=== PATIENT | male | born 1935 | race Hispanic/Latino ===

== ENCOUNTER 2019-09-07 03:21 | Emergency (ER) | payer MEDICARE ==
[2019-09-07 03:52] LABS: #Basophils 0.1 thou/uL (0.0-0.2); #Eosinphils 0.1 thou/uL (0.0-0.7); #Monocytes 0.6 thou/uL (0.11-0.59); #Neutrophils 3.7 thou/uL (1.40-6.50); %Basophils 1.4 % (0.0-1.0); %Eosinophils 1.3 % (0.0-10.0); %Lymphocytes 18.1 % (21.0-51.0); %Monocytes 10.3 % (0.0-10.0); Hemoglobin 13.2 g/dL (14.0-18.0); Mean Corpuscular HGB CONC 33.7 g/dL (32.0-36.0); Mean Corpuscular Hemoglobin 30.7 pg (27.0-31.0); Mean Platelet Volume 6.7 fL (7.4-10.4); Platelet Count 196 thou/uL (130-400); Red Blood Cell (RBC) Count 4.32 mill/uL (4.70-6.10); White Blood Cell (WBC) Count 5.4 thou/uL (4.8-10.8)
[2019-09-07 04:05] LABS: INR-International Normal Ratio 1.1; PTT 40.3 SEC (22.9-36.1); Prothrombin Time 14.2 SEC (12.0-14.7)
[2019-09-07 04:14] LABS: ALT (SGPT) 11 U/L (8-55); AST (SGOT) 17 U/L (5-34); Alkaline Phosphatase 90 U/L (40-110); Anion Gap 15 mmol/L (10-20); BUN (Urea Nitrogen) 14 mg/dL (8.4-25.7); Bilirubin, Total 0.7 mg/dL (0.2-1.2); CK (CPK) 43 U/L (30-200); Calc. Creatinine Clearance 0 mL/min (70-130); Calcium 9.1 mg/dL (7.8-10.44); Carbon Dioxide 25 mmol/L (23-31); Chloride 104 mmol/L (98-107); Estimated GFR-MDRD 61; Globulin 3.1 g/dL (2.4-3.5); Potassium 3.5 mmol/L (3.5-5.1); Protein, Total 7.1 g/dL (5.8-8.1); Sodium 140 mmol/L (136-145)
[2019-09-07 04:31] LABS: Glucose 46 mg/dL (83-110)
--- NOTE | 2019-09-07 07:31 | CT ---
PRELIMINARY REPORT/[facility]/EMERGENCY AFTER HOURS PROCEDURE: EXAM: CT Head Without Intravenous Contrast. CLINICAL HISTORY: AMS/SWEATING. BLOOD GLUCOSE 46. TECHNIQUE: Axial computed tomography images of the head/brain without intravenous contrast. COMPARISON: None provided. FINDINGS: BRAIN: There is cerebral atrophy. There is no intracranial hemorrhage. Periventricular hypodensities are present secondary to small vessel ischemic disease. VENTRICLES: No hydrocephalus. ORBITS: The orbits are unremarkable. SINUSES AND MASTOIDS: The paranasal sinuses and mastoid air cells are clear. SOFT TISSUES: No significant facial or scalp soft tissue swelling evident. No radiopaque foreign body is seen. BONES: No acute skull fracture. IMPRESSION: No acute intracranial abnormality. ELECTRONICALLY SIGNED BY: Rosa Elena Camacho MD Sep 07, 2019 4:26:12 AM CDT This report is intended for review by the ordering physician only, in accordance of law. If you recei ve this report in error, please call [facility] at [phone]. FINAL REPORT EMERGENCY AFTER HOURS CT BRAIN: I agree with the preliminary report provided by [facility]. No acute intracranial abnormality d emonstrated. Findings compared to prior dated 06/19/2010. Previously seen left frontoparietal subdura l hematoma is no longer identified. POS:
--- NOTE | 2019-09-07 07:49 | RAD ---
CHEST 1 VIEW: INDICATION: Altered mental status with possible CVA. COMPARISON: Prior exam dated 06/19/2010. FINDINGS: Midline sternotomy changes are similar-appearing. Cardiomegaly persists. Mild thickening of the rig ht pleural space is stable. No confluent airspace opacity is evident. No acute osseous abnormality is noted. IMPRESSION: Stable examination. No definite acute cardiopulmonary abnormality. POS: BH
== END 2019-09-07 05:40 | disposition home or self-care (01) ==
LOC: NAV ERS 03:21
DX: E11.649 Type 2 diabetes mellitus with hypoglycemia without coma (principal); I10 Essential (primary) hypertension; F17.210 Nicotine dependence, cigarettes, uncomplicated
CPT/HCPCS: 36416; 70450; 71045; 80053; 82550; 82553; 84484; 85025; 85610; 85730; 93005; 94760; 36415-59

== ENCOUNTER 2019-09-11 04:12 | Emergency (ER) | payer MEDICARE ==
[2019-09-11] MEDS ORDERED: Sodium Chloride 0.9% 100 ML ONE ×2 (04:46→05:19)
[2019-09-11 04:54] LABS: Band 27 % (5-11); Hemoglobin 13.1 g/dL (14.0-18.0); Lymphocytes 8 % (21-51); MDiff Complete? YES; Mean Corpuscular HGB CONC 33.2 g/dL (32.0-36.0); Mean Corpuscular Volume 93.2 fL (78.0-98.0); Mean Platelet Volume 7.4 fL (7.4-10.4); Metamyelocyte 2 % (0-0); Monocytes 8 % (0-10); Neutrophil 55 % (42-75); Platelet Count 202 thou/uL (130-400); Platelet Morphology Comment Appears Adequate; RBC Distribution Width 12.8 % (11.5-14.5); RBC Morphology Normal; Red Blood Cell (RBC) Count 4.22 mill/uL (4.70-6.10); White Blood Cell (WBC) Count 9.1 thou/uL (4.8-10.8)
[2019-09-11 04:58] LABS: ALT (SGPT) 25 U/L (8-55); AST (SGOT) 26 U/L (5-34); Albumin 3.8 g/dL (3.4-4.8); Alkaline Phosphatase 95 U/L (40-110); Anion Gap 16 mmol/L (10-20); BUN (Urea Nitrogen) 23 mg/dL (8.4-25.7); Bilirubin, Total 1.3 mg/dL (0.2-1.2); Calc. Creatinine Clearance 0 mL/min (70-130); Calcium 10.2 mg/dL (7.8-10.44); Carbon Dioxide 24 mmol/L (23-31); Chloride 96 mmol/L (98-107); Estimated GFR-MDRD 47; Globulin 3.5 g/dL (2.4-3.5); Glucose 284 mg/dL (83-110); Potassium 4.9 mmol/L (3.5-5.1); Protein, Total 7.3 g/dL (5.8-8.1); Sodium 131 mmol/L (136-145)
[2019-09-11] MEDS ORDERED: Furosemide 20 MG/2 ML VIAL ONE (05:16)
[2019-09-11] MEDS ORDERED: cefTRIAXone\\ROCEPHIN 2 GM VIAL ONE (05:19)
[2019-09-11 05:20] LABS: CKMB 1.5 ng/mL (0-6.6)
[2019-09-11] MEDS ORDERED: Acetaminophen 500 MG TAB ONE (05:22)
[2019-09-11 05:39] LABS: Base Excess-Venous 1.4 mmol/L (-2.0 to 3.0); Bicarbonate (HCO3v) 26.3 mmol/L (22.0-28.0); CO2 Tension (PvCO2) 41.8 mmHg (40.0-50.0); Calcium, Ionized 1.25 mmol/L (See Comments:); Chloride 95 mmol/L (98-107); Potassium 4.8 mmol/L (3.5-5.1); Sodium 132 mmol/L (138-145); T. Carbon Dioxide 27.6 mmol/L (22.0-28.0); vO2 Saturation-calc 83.5 % (60.0-85.0)
--- NOTE | 2019-09-11 07:11 | RAD ---
CHEST 1 VIEW: Date: 09/11/2019 INDICATION: History of increased shortness of breath and low back pain with cough. COMPARISON: Prior exam dated 09/07/2019. FINDINGS: There is cardiomegaly with worsening pulmonary vascular congestion and interstitial prominence. There is increased air space opacity seen diffusely in the parahilar regions. There are small bilateral pl eural effusions. 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 Chronic osseous changes are similar appearing . IMPRESSION: Findings suspicious for worsening mild CHF> POS: BH
== END 2019-09-11 06:20 | disposition short-term general hospital (02) ==
LOC: NAV ERS 04:12
DX: I11.0 Hypertensive heart disease with heart failure (principal); I50.9 Heart failure, unspecified; J18.9 Pneumonia, unspecified organism; R79.1 Abnormal coagulation profile; I25.10 Atherosclerotic heart disease of native coronary artery without angina pectoris; I25.2 Old myocardial infarction; E11.9 Type 2 diabetes mellitus without complications; F17.210 Nicotine dependence, cigarettes, uncomplicated
CPT/HCPCS: 71045; 80053; 82330; 82553; 82803; 83605; 83880; 84484; 85025; 85379; 87040; 87804; 93005; 94760; 96361; 96365; 96374; J0696; J1940; J3490; J7620